=== PATIENT | male | born 1980 | race Hispanic/Latino ===

== ENCOUNTER 2017-07-28 20:43 | Emergency (ER) | payer OTHER ==
[~2017-07-28] VITALS: Ht 170.2 cm; Wt 93.0 kg
[2017-07-28] MEDS ORDERED: SULFACET SOD10 % OS (21:36)
[2017-07-28 21:45] VITALS: BP 135/77
== END 2017-07-28 21:45 | disposition home or self-care (01) | DRG 125 ==
LOC: ED 20:43
DX: S05.01XA Injury of conjunctiva and corneal abrasion without foreign body, right eye, initial encounter (principal); Y93.H2 Activity, gardening and landscaping; Y92.89 Other specified places as the place of occurrence of the external cause; Y99.0 Civilian activity done for income or pay

== ENCOUNTER 2019-04-25 19:38 | Emergency (ER) | payer SELFPAY ==
[~2019-04-25] VITALS: Ht 170.2 cm; Wt 73.0 kg
[~2019-04-25 19:38] MED LIST: SULFACET SOD10 % OS
[2019-04-25 21:38] LABS: URINE BILIRUBIN - DIPSTICK NEGATIVE (NEGATIVE); URINE BLOOD DIPSTICK NEGATIVE (NEGATIVE); URINE COLOR YELLOW; URINE GLUCOSE - DIPSTICK NEGATIVE (NEGATIVE); URINE KETONE NEGATIVE (NEGATIVE); URINE LEUK ESTERASE NEGATIVE (NEGATIVE); URINE NITRITE - DIPSTICK NEGATIVE (Negative); URINE PROTEIN - DIPSTICK NEGATIVE (NEG-TRACE); URINE SPECIFIC GRAVITY 1.015; URINE UROBILINOGEN - DIPSTICK 0.2 E.U./dL (0.2)
[2019-04-25 22:06] LABS: HEMATOCRIT 44.3 % (39.0-50.0); HEMOGLOBIN 15.3 g/dl (14.0-18.0); IMMATURE GRANULOCYTES 0.1 % (0.0-5.0); MEAN CELL VOLUME 88.6 fL CALC (80.0-100.0); MEAN CORPUSCULAR HGB 30.6 pG CALC (26.0-32.0); MEAN CORPUSCULAR HGB CONC 34.5 g/L CALC (32.0-36.0); NEUT# 3.64 thou/uL (1.82-7.42); RED CELL DISTRI WIDTH 13.6 % (11.5-15.5)
[2019-04-25 22:17] LABS: ALBUMIN 4.6 g/dL (3.2-5.0); ALKALINE PHOSPHATASE 101 u/l (38-126); ANION GAP 17 (6-22 (CALC)); BILIRUBIN, TOTAL 0.5 mg/dL (0.0-1.4); BUN 8 mg/dL (9-20); BUN/CREATININE RATIO 11 (12-20 (CALC)); CARBON DIOXIDE 24 mmol/l (22-30); CHLORIDE 103 mmol/l (95-108); CREATININE 0.8 mg/dL (0.7-1.3); GFR > 60 ML/MIN (>=60 (CALC)); GFR FOR AFR.AMER. > 60 ML/MIN (>=60 (CALC)); POTASSIUM 4.1 mmol/l (3.5-5.1); SGOT/AST 42 u/l (17-59); SODIUM 139 mmol/l (137-146); TOTAL PROTEIN 8.6 g/dL (6.3-8.2)
[2019-04-25] MEDS ORDERED: CEPHALEXIN500 MG PO (23:36)
[2019-04-26 00:10] VITALS: BP 136/69
== END 2019-04-26 00:10 | disposition home or self-care (01) | DRG 603 ==
LOC: EDBD 19:38 → ED 19:38
PROVIDERS: Emergency Medicine
DX: L08.9 Local infection of the skin and subcutaneous tissue, unspecified (principal)
CPT/HCPCS: Q9967